=== PATIENT | female | born 1965 | race African-American/Black ===

== ENCOUNTER 2016-12-23 16:02 | Emergency (ER) | payer OTHER ==
[~2016-12-23] VITALS: Ht 154.9 cm; Wt 69.8 kg
--- NOTE | ~2016-12-23 | EKG ---
[address] [employer] [place] [address] ELECTROCARDIOGRAM REPORT Name: ROMMEL RONGLENNMARCO [id number] Admission: 12/23/16 Attend Phys: Discharge: 12/23/16 Date of : 65 Report #: [id number] THIS REPORT FOR: //name// [facility] ED Test Date: 2016-12-23 Test Time: 16:09:03 Pat Name: RYAN RON Department: Room: Gender: F [employer]: adolph : 1965 Requested By: Mac Negro Order Number: [id number] MD: Joel Peres Measurements Intervals [place] Rate: 82 P: 53 ID: [id number] QRS: 28 QRSD: 78 T: 43 QT: 351 QTc: 410 Interpretive Statements Sinus rhythm Normal tracing No previous ECG available for comparison Electronically Signed On 12-24-2016 17:05:29 CDT by Joel Peres [email or web address] <ELECTRONICALLY SIGNED> By: Joel Peres MD, [facility] 12/24/16 1705 1609 1609 Joel Peres MD, FACC /EPI
[2016-12-23 16:24] LABS: ABSOLUTE NEUTROPHILS 3.8 thou/uL (1.4-8.2); BASOPHILS 0.7 % (0.0-2.0); EOSINOPHILS 1.3 % (0.0-3.0); HEMATOCRIT 39.4 % (37.0-47.0); HEMOGLOBIN 13.7 gm/dL (12.0-15.0); MCH 33.1 pg (26.0-34.0); MCHC 34.8 g/dL (28.0-37.0); MCV 95.1 fL (80.0-100.0); MONOCYTES 6.9 % (1.0-8.0); PLATELET COUNT 208 thou/uL (150-400); POLYS 58.1 % (36.0-66.0); RBC 4.14 mil/uL (4.20-5.00); RDW 12.5 % (10.5-14.5); WBC 6.5 thou/uL (4.0-11.0)
[2016-12-23 16:25] LABS: MANUAL DIFF NO
[2016-12-23] MEDS ORDERED: PAXIL10 MG PO (16:29)
[2016-12-23] MEDS ORDERED: NORVASC5 MG PO (16:30)
[2016-12-23 16:32] LABS: ANION GAP 11 mmol/L (7-16); BUN 10 mg/dL (7-18); CALCIUM 9.8 mg/dL (8.5-10.1); CHLORIDE 107 mmol/L (98-107); CO2 24 mmol/L (21-32); CREATININE 1.2 mg/dL (0.6-1.0); GLUCOSE 106 mg/dL (74-106); POTASSIUM 3.4 mmol/L (3.5-5.1); SODIUM 142 mmol/L (136-145)
[2016-12-23 16:46] LABS: NT-PRO BRAIN NAT PEPTIDE 51 pg/mL (<300); TROPONIN-I < 0.04 ng/mL (<0.04-0.07)
[2016-12-23 18:49] VITALS: BP 130/94
== END 2016-12-23 18:30 | disposition home or self-care (01) ==
LOC: ER 16:02
PROVIDERS: Nurse Practitioner
DX: E86.0 Dehydration (principal)